=== PATIENT | male | born 1990 | race Hispanic/Latino ===

== ENCOUNTER 2023-11-22 08:19 | Outpatient (CLI) | payer OTHER ==
[2023-11-22 09:31] LABS: #Eosinphils 0.3 10x3/uL (0.0-0.5); #Monocytes 0.4 10x3/uL (0.0-1.1); %Basophils 0.5 % (0.0-2.0); %Eosinophils 4.1 % (0.0-6.0); %Lymphocytes 49.7 % (18.0-47.0); %Monocytes 5.8 % (0.0-10.0); %Neutrophils 39.8 % (40.0-75.0); Hematocrit 46.6 % (38.8-50.0); Mean Corpuscular HGB CONC 34.3 g/dL (32.0-36.0); Mean Corpuscular Hemoglobin 27.7 pg (27.0-33.0); Mean Corpuscular Volume 80.6 fl (81.2-95.1); Platelet Count 328 10x3/uL (150-450); RBC Distribution Width 13.4 % (11.5-14.5); Red Blood Cell (RBC) Count 5.78 10x6/uL (4.32-5.72); White Blood Cell (WBC) Count 7.6 10x3/uL (3.5-10.5)
[2023-11-22 09:47] LABS: Anion Gap 13 mmol/L (10-20); BUN (Urea Nitrogen) 18 mg/dL (8.9-20.6); Calc. Creatinine Clearance 0 mL/min (70-130); Calcium 9.4 mg/dL (7.8-10.44); Carbon Dioxide 26 mmol/L (22-29); Chloride 105 mmol/L (98-107); Estimated GFR 114; Glucose 140 mg/dL (70-105); Potassium 4.5 mmol/L (3.5-5.1); Sodium 139 mmol/L (136-145)
== END 2023-11-22 08:20 | disposition home or self-care (01) ==
LOC: LABBT 08:19
PROVIDERS: ATTEND Specialist
DX: Z01.812 Encounter for preprocedural laboratory examination (principal); K42.9 Umbilical hernia without obstruction or gangrene
CPT/HCPCS: 80048; 83036; 85025

== ENCOUNTER 2023-11-25 06:29 | Day surgery (SDC) | payer OTHER ==
[2023-11-22 08:41] VITALS: BMI 43.3
[2023-11-25] MEDS ORDERED: Ketorolac Tromethamine 30 MG (1 mL) VIAL ONE (07:01)
[2023-11-25] MEDS ORDERED: CEFAZOLIN 2 GM VIAL ONE (07:02)
[2023-11-25] MEDS ORDERED: Acetaminophen 500 MG TAB ONE (07:02)
[2023-11-25] MEDS ORDERED: Sodium Chloride 0.9% 100 ML ONE (07:02)
[2023-11-25] MEDS ORDERED: EPINEPHrine 1 MG/ML VIAL ONE (07:48)
[2023-11-25] MEDS ORDERED: Bupivacaine 0.25% HCL 30 ML VIAL ONE (07:48)
[2023-11-25] MEDS ORDERED: fentaNYL 50 mcg/mL 1 mL Vial ONE ×3 (08:08→11:08)
[2023-11-25] MEDS ORDERED: PROPOFOL 40 ML ONE (08:08)
[2023-11-25] MEDS ORDERED: Rocuronium Bromide 10 MG/ML (10ML VIAL) ONE (08:10)
[2023-11-25] MEDS ORDERED: Lidocaine 1% PF 5 ML VIAL ONE (08:10)
[2023-11-25] MEDS ORDERED: Dexmedetomidine 200 MCG/2 ML VIAL ONE (08:44)
[2023-11-25] MEDS ORDERED: Ondansetron PF 4 MG/2 ML Vial ONE (09:24)
[2023-11-25] MEDS ORDERED: Dexamethasone 4 mg/ml Vial ONE (09:24)
[2023-11-25] MEDS ORDERED: SUGAMMADEX SODIUM 200 MG/2 ML VIAL ONE ×2 (09:42→10:31)
[2023-11-25] MEDS ORDERED: HYDROcodone/Acetaminophen 5/325 mg Tablet ONE (11:51)
== END 2023-11-25 12:40 | disposition home or self-care (01) ==
LOC: SDC 06:29
PROVIDERS: ATTEND Specialist
PROC: 0WUF4JZ Supplement Abdominal Wall with Synthetic Substitute, Percutaneous Endoscopic Approach (ICD-10-PCS; principal; 2023-11-25)
DX: K42.9 Umbilical hernia without obstruction or gangrene (principal); I10 Essential (primary) hypertension; E11.9 Type 2 diabetes mellitus without complications; F17.200 Nicotine dependence, unspecified, uncomplicated
CPT/HCPCS: A4314; C1781; J0171; J0665; J1100; J1885; J2405; J2704; J3010; J3490